=== PATIENT | male | born 1940 | race Asian ===

== ENCOUNTER 2017-08-19 07:02 | Day surgery (SDC) | payer OTHER ==
[2017-08-18 14:41] VITALS: BMI 30.7
[2017-08-19] MEDS ORDERED: MIDAZOLAM HCL 2 MG/2 ML SINGLE DOSE VIAL ONE ×2 (08:30→09:22)
[2017-08-19] MEDS ORDERED: LIDOCAINE HCL 1%, 10 MG/ML (20ML VIAL) ONE (08:37)
[2017-08-19] MEDS ORDERED: ceFAZolin SODIUM 1 GM VIAL ONE (08:56)
[2017-08-19] MEDS ORDERED: ceFAZolin SODIUM 1 GM VIAL IVPB ONE (08:57)
[2017-08-19] MEDS ORDERED: KETOROLAC TROMETHAMINE 30 MG/1 ML VIAL ONE (09:04)
[2017-08-19] MEDS ORDERED: oxyCODONE HCL 5 MG TABLET PO PRN ×2 (09:55→09:56)
[2017-08-19] MEDS ORDERED: ONDANSETRON 4 MG/2 ML VIAL IVPUSH PRN (09:56)
[2017-08-19] MEDS ORDERED: PROMETHAZINE HCL 25 MG/1 ML VIAL IVPUSH PRN (09:56)
[2017-08-19] MEDS ORDERED: LACTATED RINGERS SOLUTION 1,000 ML IV SCH (10:00)
[2017-08-19] MEDS ORDERED: DEXTROSE 5%-0.45% SALINE 1,000 ML IV SCH (10:00)
--- NOTE | 2017-08-19 10:02 | OP ---
Operative Note - Note: Operative Date: 08/19/17 Pre-Operative Diagnosis: urinary freq/urge incontinence Operation: full interstim implant Findings: freq/incont Post-Operative Diagnosis: Same as Pre-op Surgeon: Volodymyr Tapia Anesthesia: General Estimated Blood Loss (mls): 5 Operative Report Dictated: Yes
--- NOTE | 2017-08-19 10:18 | OP ---
DATE OF OPERATION: 08/19/2017 PREOPERATIVE DIAGNOSIS: Urgency incontinence. POSTOPERATIVE DIAGNOSIS: Urgency incontinence. PROCEDURE: Full InterStim implant. SURGEON: Giovanni Duarte MD INDICATION: The patient is a 77-year-old male with overactive bladder, frequency, urge incontinence who failed medical therapy. He had an approximately 50% improvement with his in-office P and E and elected to undergo full InterStim implant. Risks, benefits, and alternatives were discussed. DESCRIPTION OF PROCEDURE: After informed consent was obtained, the patient was taken to the OR and placed supine on the operating room table. IV sedation was given. At this point then under active fluoroscopy, landmarks were chosen to correspond to the patient's S3 foramen. After a small amount of local anesthetic was applied to the sacral area, a finder needle was placed into each S3 foramen and both S3 foramen tested. The best motor and sensory response were obtained from the patient's right-sided S3 foramen needle, so the left side needle was then removed. At this point then a guidewire was advanced through the needle. Over the guidewire, a trocar was advanced into the S3 foramen. The guidewire was then removed and then through the trocar the lead was then placed so it was angled to the left, and this was confirmed under fluoroscopy via AP and lateral views. Three of the leads were below the inferior aspect of the bone. One lead straddled it. All 4 leads were then tested with appropriate motor and sensory responses. At this point, attention was turned to forming the battery pocket. On the patient's right side, an approximately 3-cm incision was created and then a pocket was created in the gluteal fat and then the wire was transferred from the S3 foramen subcutaneously to the gluteal pocket. The lead wire was then attached to the battery and screwed in place. It was interrogated to confirm appropriate impedances. At this point, with everything in place, attention was turned to wound closure. The gluteal pocket was closed in 2 layers with a 3-0 chromic followed by a 4-0 Monocryl and then Dermabond. The original S3 puncture site was closed with Dermabond. A dry, sterile dressing was then placed. The patient was awoken from anesthesia and transferred to recovery room in stable condition. There were no complications. Estimated blood loss was minimal. GIOVANNI DUARTE M.D. [id number]
[2017-08-19 11:24] VITALS: TEMP 97.8
[2017-08-19 13:04] VITALS: BP 125/74; PULSE 66
== END 2017-08-19 13:15 | disposition home or self-care (01) ==
LOC: JASU-SURG 07:02
PROVIDERS: ATTEND Urology
PROC: 01HY3MZ Insertion of Neurostimulator Lead into Peripheral Nerve, Percutaneous Approach (ICD-10-PCS; 2017-08-19)
PROC: 0JH70DZ Insertion of Multiple Array Stimulator Generator into Back Subcutaneous Tissue and Fascia, Open Approach (ICD-10-PCS; principal; 2017-08-19 08:30)
DX: N39.41 Urge incontinence (principal)
CPT/HCPCS: 76000-TC; 94760